=== PATIENT | male | born 1960 | race Caucasian/White ===

== ENCOUNTER 2024-06-17 11:05 | Outpatient (CLI) | payer MEDICARE, BC, SELFPAY | END 2024-06-17 11:06 | disposition home or self-care (01) | PROVIDERS: PCP Family Medicine; Visit Provider Family Medicine | DX: R13.10 Dysphagia, unspecified (principal); K21.9 Gastro-esophageal reflux disease without esophagitis | CPT/HCPCS: 74221 ==

== ENCOUNTER 2024-09-17 13:10 | Outpatient (CLI) | payer MEDICARE, BC, SELFPAY ==
--- NOTE | 2024-09-17 13:44 | P.ANES_ITS ---
Anesthesia Charges Start Date/Time Anesthesia Start Date: 09/17/24 Anesthesia Start Time: 14:14 Stop Date/Time Anesthesia Stop Date: 09/17/24 Anesthesia Stop Time: 14:39 Coding CPT Codes CPT Codes: ANES UPR GI NDSC PX NOS - 27401 ([id number]) P2 - PATIENT W/MILD SYST DISEASE, QK - LODGE OFFICER 2-4 CNCRNT ANES PROC, QX - SERVICE PROVIDER SVC W/ MD MED DIRECTION
--- NOTE | 2024-09-17 13:44 | W.ANESCHARGE ---
Anesthesia Charges Start Date/Time Anesthesia Start Date: 09/17/24 Anesthesia Start Time: 14:14 Stop Date/Time Anesthesia Stop Date: 09/17/24 Anesthesia Stop Time: 14:39 Coding CPT Codes CPT Codes: ANES UPR GI NDSC PX NOS - 02781 ([id number]) P2 - PATIENT W/MILD SYST DISEASE, QK - AIRPLANE TECHNICIAN 2-4 CNCRNT ANES PROC, QX - EXHIBITION ORGANISER SVC W/ MD MED DIRECTION
--- NOTE | 2024-09-17 14:40 | P.ANES_ITS ---
Anesthesia Charges Start Date/Time Anesthesia Start Date: 09/17/24 Anesthesia Start Time: 14:14 Stop Date/Time Anesthesia Stop Date: 09/17/24 Anesthesia Stop Time: 14:39 Coding CPT Codes CPT Codes: ANES UPR GI NDSC PX NOS - 23251 ([id number]) P2 - PATIENT W/MILD SYST DISEASE, QK - AIRCRAFT INSPECTION RECORD CLERK 2-4 CNCRNT ANES PROC, QX - CLERK SUPERVISOR SVC W/ MD MED DIRECTION
--- NOTE | 2024-09-17 14:40 | W.ANESCHARGE ---
Anesthesia Charges Start Date/Time Anesthesia Start Date: 09/17/24 Anesthesia Start Time: 14:14 Stop Date/Time Anesthesia Stop Date: 09/17/24 Anesthesia Stop Time: 14:39 Coding CPT Codes CPT Codes: ANES UPR GI NDSC PX NOS - [id number] ([id number]) P2 - PATIENT W/MILD SYST DISEASE, QK - GENETIC COUNSELOR 2-4 CNCRNT ANES PROC, QX - SORTING AND FOLDING SUPERVISOR SVC W/ MD MED DIRECTION
== END 2024-09-17 13:11 | disposition home or self-care (01) ==
LOC: OP CLINIC 13:13
PROVIDERS: PCP Family Medicine; Visit Provider Internal Medicine Gastroenterology
DX: R13.10 Dysphagia, unspecified (principal); K22.89 Other specified disease of esophagus
CPT/HCPCS: 00731; 43239; 88305; J2704; J3490